=== PATIENT | female | born 1945 | race African-American/Black ===

== ENCOUNTER 2017-08-24 02:32 | Inpatient (IN) | payer BC ==
[2017-08-24] VITALS (38 sets, daily range): BP systolic 56–133; BP diastolic 32–77
[~2017-08-24] VITALS: Ht 172.7 cm; Wt 42.2 kg
--- NOTE | 2017-08-24 02:42 | Emergency Room Report ---
History of Present Illness General Source: Patient, Family Member, Medical Record, EMS Present Illness HPI [id number] BIBEMS for hypoxia "for a couple hours" per EMS and "change in mental status." HPI limited d/t severity of illness, but patient able to endorse "trouble breathing" but deneis chest pain, abd pain, fever/chills, cough POLS sheet is contradictory "DNR" is checked off but its hand-written "intubation OK." However patient, being alert and oriented X3, with me and RN Alethea present, does NOT want to be intubate Allergies: Coded Allergies: No Known Allergies (Unverified , 08/24/17) Patient History Past Medical History: other - COPD, PE, DVT, cancer Past Surgical History: none Pertinent Family History: none Social History: Denies: smoking, alcohol use, drug use Now: No Immunizations: UTD Reviewed Nursing Documentation: PMH: Agreed, PSxH: Agreed Review of Systems All Other Systems: negative except mentioned in HPI Physical Exam Sp02 EP Interpretation: reviewed, abnormal General Appearance: normal inspection, well appearing, no apparent distress, alert, GCS 15, non-toxic, mild distress, cachetic, thin Head: normocephalic, atraumatic Eyes: bilateral eye PERRL, bilateral eye EOMI ENT: normal ENT inspection, hearing grossly normal, normal pharynx, no angioedema, normal voice, TMs + canals normal, uvula midline, moist mucus membranes Neck: normal inspection, full range of motion, supple, thyroid normal, no meningismus, no bony tend Respiratory: normal inspection, lungs clear, normal breath sounds, no rhonchi, no respiratory distress, no retraction, no accessory muscle use, no wheezing, speaking full sentences Cardiovascular #1: regular rate, rhythm, no edema, no JVD, normal capillary refill Gastrointestinal: normal inspection, normal bowel sounds, non tender, soft, no mass, no peritonitis, non-distended, no guarding, no hernia, no pulsatile mass Genitourinary: no CVA tenderness Musculoskeletal: normal inspection, back normal, normal range of motion, no calf tenderness, pelvis stable, Spenser's Sign negative Neurologic: normal inspection, alert, oriented x3, responsive, kennel technician III-XII nml as tested, motor strength/tone normal, cerebellar normal, normal gait, speech normal Psychiatric: normal inspection, judgement/insight normal, mood/affect normal, no suicidal/homicidal ideation, no delusions Skin: normal inspection, normal color, no rash Lymphatic: normal inspection, no adenopathy Procedures Critical Care Time Critical Care Time CC time 40 minutes Critical care time endorsed for this patient for sepsis, PNA Critical care time includes review of laboratory tests, imaging, review of EMR, review of paperwork from SNF (if available), discussion with patient and patient 's daughter, review of code status/POLS (if available). Critical care time also likely includes assessment of fluid status, stabilization of vital signs, selection and dosing of appropriate antibiotics, selection and dosing of Aspirin/Plavix/Heparin/Lovenox, discussion with PMD/ attending hospitalist/family advocate. Critical care time does not include any procedures which are documented elsewhere in this EMR. Medical Decision Making Diagnostic Impression: Primary Impression: Hypoxia Additional Impressions: SOB (shortness of breath) Sepsis Qualified Codes: A41.9 - Sepsis, unspecified organism Elevated troponin Lactic acid acidosis ER Course VS significant for hypoxia, hypotension, tachycardia Sepsis criteria met Patient is alert and oriented - staunchly refused intubation and BIPAP Was given duonebs X2 initially as EMS endorsed history of COPD/asthma but after review of charts, no known history of COPD/Asthma CXR shows bilateral airspace disease, unclear if also underlying PNA Continued empiric Abx - Vanc and Zosyn she was given at [facility] Blood Cx pending Low-rate IVF given for sepsis as lungs CTAB, not on florid pulm edema at this time Labs show Leuks 27K. Per daughter, they were 23K yesterday at [facility] UA also with UTI Lactic acidosis 6.7 Patient with sepsis, PNA +/- UTI Patients daughter, decision-maker, is bedside - states she is scheduled today for every-other week thoracentesis at [facility] for recurrent pleural effusions Additional labs: H&H stable. Mild serumCr elevation, known CKD ECG with ST depressions in inferior and lateral leads with elevated troponin, likely demand ischemia from sepsis Endorsed to Dr Lofton as per Insurance preference at 401am for tele admission as of 425am BP is 89/63, MAP is 69 Patient has PICC line, will use for pressors as needed. EKG Diagnostic Results Rate: tachycardiac Rhythm: NSR ST Segments: no acute changes ASA given to the pt in ED: No Rhythm Strip Diag. Results EP Interpretation: yes Rate: 116 Rhythm: NSR, no PVC's, no ectopy Chest X-Ray Diagnostic Results Chest X-Ray Diagnostic Results : Chest X-Ray Ordered: Yes # of Views/Limited/Complete: 1 View Indication: Shortness of Breath Interpretation: no pneumothorax, other - Bilateral pulm congestion, ? bilateral PNA Electronically Signed by: Dr Dae Gilbert MD Status: improved Disposition: ADMITTED INPATIENT Condition: Critical DAE GILBERT M.D. Aug 24, 2017 02:42
[2017-08-24] MEDS ORDERED: Vancomycin 1 GM in NS 275 ML IV ONE (02:45)
[2017-08-24] MEDS ORDERED: FUROSEMIDE20 M1 ORAL (03:02)
[2017-08-24] MEDS ORDERED: CRESTOR40 MG ORAL (03:02)
[2017-08-24] MEDS ORDERED: LOVENOX10 M4 SUBQ (03:02)
[2017-08-24] MEDS ORDERED: CLOPIDOGREL75 MG ORAL (03:02)
[2017-08-24] MEDS ORDERED: METOPROLOL TART25 MG ORAL (03:02)
[2017-08-24] MEDS ORDERED: AMIODARONE HCL200 MG ORAL (03:02)
[2017-08-24] MEDS ORDERED: CALCIUM 500 +1 EAC3 PO (03:02)
[2017-08-24] MEDS ORDERED: ASPIRIN81 MG ORAL (03:02)
[2017-08-24 03:36] LABS: HEMATOCRIT 33.5 % (37.0-47.0); HEMOGLOBIN 10.2 G/DL (12.0-16.0); MEAN CORPUSCULAR VOLUME 91 FL (80-99); PLATELET COUNT 243 K/UL (150-450); RED BLOOD COUNT 3.68 M/UL (4.20-5.40); RED CELL DISTRIBUTION WIDTH 17.8 % (11.6-14.8)
[2017-08-24 03:40] LABS: WHITE BLOOD COUNT 27.3 K/UL (4.8-10.8)
[2017-08-24 03:42] LABS: ANION GAP 14 mmol/L (5-15); BLOOD UREA NITROGEN 35 mg/dL (7-18); CALCIUM 7.6 MG/DL (8.5-10.1); CARBON DIOXIDE 21 MMOL/L (21-32); CHLORIDE 108 MMOL/L (98-107); CREATININE 1.7 MG/DL (0.55-1.30); POTASSIUM 3.6 MMOL/L (3.5-5.1); SODIUM 143 MMOL/L (136-145)
[2017-08-24] MEDS ORDERED: Vancomycin 1gm inj IVPB ONE (03:49)
[2017-08-24] MEDS ORDERED: Zosyn 4.5gm inj ONE (03:52)
[2017-08-24 03:55] LABS: ALANINE AMINOTRANSFERASE 50 U/L (12-78); ALBUMIN/GLOBULIN RATIO 0.2 (1.0-2.7); ALKALINE PHOSPHATASE 341 U/L (46-116); ASPARTATE AMINO TRANSFERASE 44 U/L (15-37); BILIRUBIN,TOTAL 0.4 MG/DL (0.2-1.0); CKMB 1.4 NG/ML (0.0-3.6); CREATINE KINASE 56 U/L (26-308)
[2017-08-24] MEDS ORDERED: DIPHENOXYLATE-1 EACH PO (04:00)
[2017-08-24] MEDS ORDERED: POTASSIUM CHLO10 ME2 PO (04:00)
[2017-08-24] MEDS ORDERED: PANCREASE1 EA ORAL (04:00)
[2017-08-24] MEDS ORDERED: ZANTAC150 MG ORAL (04:00)
[2017-08-24] MEDS ORDERED: TYLENOL EXTRA500 MG ORAL (04:00)
[2017-08-24 04:06] LABS: APPEARANCE,URINE CLOUDY; BILIRUBIN, URINE NEGATIVE (NEGATIVE); GLUCOSE, URINE (UA) NEGATIVE (NEGATIVE); KETONES,URINE NEGATIVE (NEGATIVE); LEUKOCYTE ESTERASE ,URINE 1+ (NEGATIVE); NITRITE,URINE NEGATIVE (NEGATIVE); PH,URINE 5 (4.5-8.0); PROTEIN,URINE 3+ (NEGATIVE); UROBILINOGEN,URINE NORMAL MG/DL (0.0-1.0)
[2017-08-24 04:18] LABS: COLOR,URINE YELLOW
[2017-08-24] MEDS ORDERED: Piperacillin/Tazobactam 4.5 GM in NS 110 ML IV SCH ×4 (06:00)
[2017-08-24] MEDS ORDERED: Sodium Chloride 500ML 500 ML IV ONE (09:00)
[2017-08-24] MEDS ORDERED: LORazepam Inj 2mg/ml 1ml IV PRN (11:00)
[2017-08-24 11:08] LABS: INR 1.4 (0.9-1.1)
[2017-08-24] MEDS ORDERED: Albuterol/Ipratropium 3ml neb HHN PRN ×2 (11:15→14:00)
--- NOTE | 2017-08-24 11:18 | Emergency Room Report ---
History of Present Illness General Chief Complaint: Dyspnea/Respdistress Source: Patient, Family Member, Medical Record, EMS Present Illness Allergies: Coded Allergies: No Known Allergies (Unverified , 08/24/17) Patient History Now: No Nursing Documentation-PMH Hx Cardiac Problems: Yes - CHF,CAD,PE Hx Hypertension: Yes Hx Cancer: Yes - MALIGNANT NEOPLASM OF PANCREAS Physical Exam Vital Signs Date Time Temp Pulse Resp B/P (MAP) Pulse Ox O2 Delivery O2 Flow Rate FiO2 08/24/17 02:43 98.4 112 29 84/66 95 Non-Rebreather 15.0 Procedures Intubation Intubation : Consent: Emergent Intubation Method: orotracheal Tube Size (cm): 7.0 Breath Sounds after Intubation: equal Intubation Complications: no complications Post Intubation Xray: Yes Attempts: One Patient Tolerated: Well Complications: None Medical Decision Making Diagnostic Impression: Primary Impression: Hypoxia Additional Impressions: Lactic acid acidosis SOB (shortness of breath) Elevated troponin Sepsis Qualified Codes: A41.9 - Sepsis, unspecified organism ER Course I was called up to medical floor as patient stopped breathing Pulses intact Patient is DO NOT RESUSCITATE however not DO NOT INTUBATE Patient's daughter was in the room, is the power of solid tire finisher, states that patient would want intubation Patient intubated without complication Patient to be transferred to ICU Nursing staff notified Dr Lofton Last Vital Signs Date Time Temp Pulse Resp B/P (MAP) Pulse Ox O2 Delivery O2 Flow Rate FiO2 08/24/17 08:35 71/49 08/24/17 07:25 98.9 92 32 95 Non-Rebreather 15.0 Disposition: ADMITTED INPATIENT Condition: Critical Referrals: MARGIEREFERRING (PCP) Snow Posey M.D. Aug 24, 2017 11:18
--- NOTE | 2017-08-24 12:29 | Diagnostic Imaging Report ---
Indication: Shortness of breath Technique: One view of the chest Comparison: none Findings: There is left arm port catheter. Extensive bilateral diffuse interstitial and airspace disease is demonstrated bilaterally. Honeycomb appearance of much of the interstitial disease suggests significant chronic component there are bilateral pleural effusions as well. The heart size is normal. Impression: Bilateral diffuse interstitial and airspace disease, suspect combination of acute infiltrates versus edema and chronic interstitial fibrotic changes. Correlate with clinical history Bilateral pleural effusions Left arm port catheter
--- NOTE | 2017-08-24 12:54 | History & Physical ---
History and Physical History & Physicial dict DANNIDAE EL Aug 24, 2017 12:54
[2017-08-24] MEDS ORDERED: Enoxaparin 40mg Inj SUBQ SCH (13:00)
[2017-08-24] MEDS: Enoxaparin 40mg Inj SUBQ SCH (14:00)
--- NOTE | 2017-08-24 14:31 | Brief Operative Note ---
Immediate Post Operative Note Operative Note Pre-op Diagnosis: pleural effusion Procedure: thoracentesis Post-op Diagnosis: same Surgeon: Sumi Sosa Specimen: yes - fluid sent to lab Complications: none Fluids: none Implant(s) used?: No DALTON SOSA M.D. Aug 24, 2017 14:31
--- NOTE | 2017-08-24 14:31 | Pre-Procedure Note/Attestation ---
Pre-Procedure Note/Attestation Complete Prior to Procedure Planned Procedure: right Procedure Narrative: US guided thoracentesis Indications for Procedure Pre-Operative Diagnosis: pleural effusion Attestation I attest that I discussed the nature of the procedure; its benefits; risks and complications; and alternatives (and the risks and benefits of such alternatives ), prior to the procedure, with the patient (or the patient's legal customer care representative). I attest that, if there was a reasonable possibility of needing a blood transfusion, the patient (or the patient's legal customer care representative) was given the [facility] standardized written summary, pursuant to the Jl Kurt Blood Safety Act ([place] Health and Safety Code # 1645, as amended). I attest that I re-evaluated the patient just prior to the surgery and that there has been no change in the patient's H&P, except as documented below: Discussed with daughter at bedside immediately prior to the procedure DALTON SOSA M.D. Aug 24, 2017 14:31
--- NOTE | 2017-08-24 15:52 | Pre-Procedure Note/Attestation ---
Pre-Procedure Note/Attestation Complete Prior to Procedure Planned Procedure: right Procedure Narrative: Chest vent placement Indications for Procedure Pre-Operative Diagnosis: pneumothorax Attestation I attest that I discussed the nature of the procedure; its benefits; risks and complications; and alternatives (and the risks and benefits of such alternatives ), prior to the procedure, with the patient (or the patient's legal pharmaceutical representative). I attest that, if there was a reasonable possibility of needing a blood transfusion, the patient (or the patient's legal pharmaceutical representative) was given the [facility] standardized written summary, pursuant to the Jl Kurt Blood Safety Act ([place] Health and Safety Code # 1645, as amended). I attest that I re-evaluated the patient just prior to the surgery and that there has been no change in the patient's H&P, except as documented below: Discussed with pt's daughter at bedside immediately before the procedure DALTON SOSA M.D. Aug 24, 2017 15:52
--- NOTE | 2017-08-24 15:54 | Brief Operative Note ---
Immediate Post Operative Note Operative Note Pre-op Diagnosis: pneumothorax Procedure: chest vent placement at bedside Post-op Diagnosis: same Post-op Diagnosis: same as pre-op Surgeon: Sumi SOSA Anesthesia: local Specimen: none Complications: none Fluids: none Drains: other - chest vent Implant(s) used?: No DALTON SOSA M.D. Aug 24, 2017 15:54
[2017-08-24] MEDS ORDERED: Piperacillin/Tazobactam 3.375 GM in NS 110 ML IVPB SCH (16:00)
--- NOTE | 2017-08-24 16:03 | Diagnostic Imaging Report ---
Indication: Status post thoracentesis Technique: One view of the chest Comparison: 11 hours earlier Findings: Interim development of a large 70+ percent right pneumothorax. No definite mediastinal shift. Interim endotracheal intubation, endotracheal tube tip approximately 5 cm above the nisha. Left pleural effusion and left lung interstitial and airspace disease is unchanged. Left arm port catheter is again demonstrated Impression: 70+ percent right pneumothorax. This critical value findings phoned to Dr. Lofton at 1445 on 08/24/2017 Satisfactory endotracheal intubation Unchanged left pleural effusion and parenchymal disease
--- NOTE | 2017-08-24 16:36 | Diagnostic Imaging Report ---
Indications: Pleural effusion Technique: Procedure performed at bedside. Informed consent obtained prior to commencement of the procedure from the patient's daughter. Procedure timeout performed. Ultrasound used to localize optimal puncture site. Sterile prepping and draping right chest chest. Local anesthesia with 1% lidocaine. Under real-time ultrasound guidance, puncture pleural space using thoracentesis needle. Stylet removed. Catheter placed to vacuum bottle suction. Total 1200 milliliters of fluid aspirated. Follow-up chest radiograph demonstrates large pneumothorax. Findings: Followup sonography demonstrates near complete resolution of pleural fluid. Impression: Successful ultrasound-guided thoracentesis, yielding 1200 milliliters of fluid. Note the procedure complicated by post procedure pneumothorax, requiring chest vent placement
--- NOTE | 2017-08-24 17:27 | Diagnostic Imaging Report ---
Indication: Pneumothorax, follow-up after thoracic vent placement Technique: One view of the chest Comparison: Radiograph taken immediately after thoracic vent placement 90 minutes earlier Findings: Stable satisfactory position of thoracic vent catheter.. However, despite this, there is interim increase in right pneumothorax, probably over 50%. No mediastinal shift demonstrated. Diffuse bilateral interstitial and airspace disease, left-sided pleural effusion persists. Endotracheal tube, left arm port catheter again demonstrated. Surgical clips are seen in the upper abdomen Impression: Worsening right pneumothorax, now probably over 50%, despite apparent adequate position of chest vent catheter and placement to continuous suction. This indicates likely air leak; tube thoracostomy should be considered. Critical value findings phoned to Dr. Lofton at the time of interpretation
--- NOTE | 2017-08-24 17:36 | Diagnostic Imaging Report ---
Indication: Large pneumothorax after thoracentesis Technique: Informed consent obtained prior to commencement of the procedure from the patient's daughter. Procedure performed at bedside. Prior imaging studies reviewed. Procedure timeout performed. Sterile prepping and draping. Using manual landmarks, selected puncture site was the fourth intercostal space lateral to the mid axillary line. Local anesthesia with 1% lidocaine. Using trocar technique a chest vent catheter was introduced into the pleural space. Movement of the diaphragm indicated position within the pleural space. The pneumothorax was then forcibly evacuated with a 60 mL syringe. Follow-up chest radiograph obtained, demonstrating marked decrease in extent of pneumothorax, probably at 20%, as well as increased lateral chest wall and supraclavicular subcutaneous emphysema. After manual evacuation, the tube was placed to continuous Pleur-evac suction. Patient's hemodynamics improved after tube placement Comparison: Apparently successful placement of right chest vent catheter for evacuation of large post thoracentesis pneumothorax, as described Findings: Impression:
--- NOTE | 2017-08-24 18:39 | Consultation ---
History of Present Illness General Date patient seen: Aug 24, 2017 Chief Complaint: Dyspnea/Respdistress Reason for Consultation: Right pneumothorax (PTX) Present Illness HPI 72 year old female with multiple medical comorbidities including metastatic pancreatic cancer who recently was transferred after developing respiratory distress and altered mental status. During admission went into respiratory distress and required intubation. Known history of effusions and planned thoracentesis soon. CXR with effusions. Had right thoracentesis today. Post procedure PTX noted and vent placed. unfortunately persistent ptx. surgery called to evaluate for chest tube placement. patient seen, chart reviewed, care discussed with family. Allergies: Coded Allergies: No Known Allergies (Unverified , 08/24/17) Medication History Scheduled Amiodarone Hcl* (Cordarone*), 200 MG ORAL DAILY, (Reported) Aspirin* (Aspirin*), 81 MG ORAL DAILY, (Reported) Clopidogrel* (Clopidogrel*), 75 MG ORAL DAILY, (Reported) Enoxaparin* (Lovenox*), 40 MG SUBQ EVERY 12 HOURS, (Reported) Furosemide* (Lasix*), 20 MG ORAL DAILY, (Reported) Lipase/Amylase/Protease* (Pancrease*), 2 CAP ORAL THREE TIMES A DAY, (Reported) Metoprolol Tartrate* (Metoprolol Tartrate*), 25 MG ORAL DAILY, (Reported) Potassium Chloride (Potassium Chloride), 10 MEQ PO DAILY, (Reported) Ranitidine Hcl* (Zantac*), 150 MG ORAL DAILY, (Reported) Rosuvastatin Calcium* (Crestor*), 40 MG ORAL DAILY, (Reported) Scheduled PRN Acetaminophen* (Tylenol Extra Strength*), 500 MG ORAL Q6H PRN for Mild Pain/ Temp > 100.5, (Reported) Diphenoxylate Hcl/Atropine (Diphenoxylate-Atropine Tablet), 1 EACH PO QID PRN for Diarrhea, (Reported) Miscellaneous Medications Calcium Carbonate/Vitamin D3 (Calcium 500 + D Tablet), 1 EACH PO, (Reported) Patient History Limited by: medical condition History Provided By: Family Member, Medical Record Healthcare decision maker Resuscitation status Do Not Resuscitate Advanced Directive on File No Past Medical/Surgical History Past Medical/Surgical History: (1) Pancreatic cancer metastasized to lung (2) Pneumothorax on right (3) SOB (shortness of breath) (4) Hypoxia (5) Sepsis (6) Lactic acid acidosis (7) Elevated troponin Review of Systems ROS Narrative cannot obtain given patients current medical condition Physical Exam General Appearance: cachetic, thin, other - comfortable on vent HEENT: mucous membranes moist Neck: normal inspection Respiratory/Chest: chest tube, on vent Cardiovascular/Chest: tachycardia Abdomen: soft, no organomegaly Extremities: no cyanosis Skin Exam: normal pigmentation Neurologic: unresponsiveness Last 24 Hour Vital Signs Date Time Temp Pulse Resp B/P (MAP) Pulse Ox O2 Delivery O2 Flow Rate FiO2 08/24/17 17:05 55/35 08/24/17 16:45 90 26 100 08/24/17 16:30 97 24 78/51 Mechanical Ventilator 100 97 08/24/17 16:00 100 08/24/17 16:00 97.1 97 31 105/67 Mechanical Ventilator 100 97 08/24/17 15:30 97 31 129/71 Mechanical Ventilator 100 97 08/24/17 15:00 97 29 92/43 Mechanical Ventilator 100 97 08/24/17 14:56 97 31 100 08/24/17 14:30 85 29 58/35 Mechanical Ventilator 100 08/24/17 14:00 88 29 101/73 Mechanical Ventilator 100 08/24/17 13:30 86 28 103/65 Mechanical Ventilator 100 08/24/17 13:00 83 28 115/69 Mechanical Ventilator 100 08/24/17 12:30 80 27 110/65 Mechanical Ventilator 100 08/24/17 12:00 70/47 08/24/17 12:00 100 08/24/17 12:00 97.3 81 28 73/50 Mechanical Ventilator 100 08/24/17 08:35 71/49 08/24/17 07:40 97.2 85 24 83/48 94 Non-Rebreather 15.0 08/24/17 07:25 98.9 92 32 123/64 95 Non-Rebreather 15.0 08/24/17 07:00 98.9 92 32 123/64 95 Non-Rebreather 15.0 08/24/17 06:00 98.9 91 26 107/66 98 Non-Rebreather 15.0 08/24/17 05:00 98.9 98 23 100/61 95 Non-Rebreather 15.0 08/24/17 04:00 98.9 102 23 99/58 97 Non-Rebreather 15.0 08/24/17 03:00 99.8 108 26 / 95 Non-Rebreather 15.0 08/24/17 03:00 108 26 Non-Rebreather 15.0 08/24/17 02:43 98.4 112 29 95 Non-Rebreather 15.0 Intake and Output 08/23/17 08/24/17 19:00 07:00 Intake Total 1385 ml Output Total 150 ml Balance 1235 ml Intake IV Total 1385 ml Output Urine Total 150 ml Laboratory Tests Test 08/24/17 03:00 08/24/17 03:55 08/24/17 06:20 08/24/17 10:00 White Blood Count 27.3 K/UL (4.8-10.8) *H Red Blood Count 3.68 M/UL (4.20-5.40) L Hemoglobin 10.2 G/DL (12.0-16.0) L Hematocrit 33.5 % (37.0-47.0) L Mean Corpuscular Volume 91 FL (80-99) Mean Corpuscular Hemoglobin 27.6 PG (27.0-31.0) Mean Corpuscular Hemoglobin Concent 30.3 G/DL (32.0-36.0) L Red Cell Distribution Width 17.8 % (11.6-14.8) H Platelet Count 243 K/UL (150-450) Mean Platelet Volume 8.5 FL (6.5-10.1) Neutrophils (%) (Auto) % (45.0-75.0) Lymphocytes (%) (Auto) % (20.0-45.0) Monocytes (%) (Auto) % (1.0-10.0) Eosinophils (%) (Auto) % (0.0-3.0) Basophils (%) (Auto) % (0.0-2.0) Differential Total Cells Counted 100 Neutrophils % (Manual) 93 % (45-75) H Lymphocytes % (Manual) 1 % (20-45) L Monocytes % (Manual) 2 % (1-10) Eosinophils % (Manual) 0 % (0-3) Basophils % (Manual) 0 % (0-2) Band Neutrophils 4 % (0-8) Platelet Estimate Adequate Platelet Morphology Normal Sodium Level 143 MMOL/L (136-145) Potassium Level 3.6 MMOL/L (3.5-5.1) Chloride Level 108 MMOL/L (98-107) H Carbon Dioxide Level 21 MMOL/L (21-32) Anion Gap 14 mmol/L (5-15) Blood Urea Nitrogen 35 mg/dL (7-18) H Creatinine 1.7 MG/DL (0.55-1.30) H Estimat Glomerular Filtration Rate mL/min (>60) Glucose Level 135 MG/DL (74-106) H Lactic Acid Level 6.70 mmol/L (0.66-2.22) H 2.90 mmol/L (0.66-2.22) H Calcium Level 7.6 MG/DL (8.5-10.1) L Total Bilirubin 0.4 MG/DL (0.2-1.0) Aspartate Amino Transf (AST/SGOT) 44 U/L (15-37) H Alanine Aminotransferase (ALT/SGPT) 50 U/L (12-78) Alkaline Phosphatase 341 U/L (46-116) H Total Creatine Kinase 56 U/L (26-308) Creatine Kinase MB 1.4 NG/ML (0.0-3.6) Creatine Kinase MB Relative Index 2.5 Troponin I 0.189 ng/mL (0.000-0.056) 0.460 ng/mL (0.000-0.056) Pro-B-Type Natriuretic Peptide 6991 pg/mL (0-125) H Total Protein 5.1 G/DL (6.4-8.2) L Albumin 1.0 G/DL (3.4-5.0) L Globulin 4.1 g/dL Albumin/Globulin Ratio 0.2 (1.0-2.7) L Urine Color Yellow Urine Appearance Cloudy Urine pH 5 (4.5-8.0) Urine Specific [place] 1.015 (1.005-1.035) Urine Protein 3+ (NEGATIVE) H Urine Glucose (UA) Negative (NEGATIVE) Urine Ketones Negative (NEGATIVE) Urine Occult Blood 2+ (NEGATIVE) H Urine Nitrite Negative (NEGATIVE) Urine Bilirubin Negative (NEGATIVE) Urine Urobilinogen Normal MG/DL (0.0-1.0) Urine Leukocyte Esterase 1+ (NEGATIVE) H Urine RBC 5-10 /HPF (0 - 2) H Urine WBC 2-4 /HPF (0 - 2) Urine Squamous Epithelial Cells Few /LPF (NONE/OCC) Urine Amorphous Sediment Many /LPF (NONE) H Urine Bacteria Many /HPF (NONE) H Urine Coarse Granular Casts 5-10 /LPF (NONE) H Urine Mucus Few /LPF (NONE/OCC) H Prothrombin Time 14.8 SEC (9.30-11.50) H Prothromb Time International Ratio 1.4 (0.9-1.1) H Activated Partial Thromboplast Time 49 SEC (23-33) H Test 08/24/17 12:48 Arterial Blood pH 7.310 (7.350-7.450) Arterial Blood Partial Pressure CO2 38.9 mmHg (35.0-45.0) Arterial Blood Partial Pressure O2 104.6 mmHg (75.0-100.0) H Arterial Blood HCO3 19.5 mmol/L (22.0-26.0) L Arterial Blood Oxygen Saturation 95.3 % (92.0-98.0) Arterial Blood Base Excess -6.1 Aram Test Positive Microbiology Date/Time Source Procedure Growth Status 08/24/17 03:30 Nasal Nares Influenza Types A,B Antigen (JUSTINE) - Final Complete Height (Feet): 5 Height (Inches): 8.00 Weight (Pounds): 93 Medications Current Medications Medications (Trade) Dose Ordered Sig/Mati Route PRN Reason Start Time Stop Time Status Last Admin Dose Admin Albuterol/ Ipratropium (Albuterol/ Ipratropium) 3 ml Q4H PRN HHN Shortness of Breath 08/24/17 14:00 08/29/17 13:59 Amiodarone HCl (Cordarone) 200 mg DAILY ORAL 08/25/17 09:00 09/24/17 08:59 Aspirin (ASA) 81 mg DAILY ORAL 08/25/17 09:00 09/24/17 08:59 Atorvastatin Calcium (Lipitor) 80 mg QHS ORAL 08/24/17 21:00 09/23/17 20:59 Clopidogrel Bisulfate (Plavix) 75 mg DAILY ORAL 08/25/17 09:00 09/24/17 08:59 Dextrose (Dextrose 50%) STAT PRN IV Hypoglycemia 08/24/17 14:00 09/23/17 13:59 Dextrose/ Electrolytes 1,000 ml @ 100 mls/hr Q10H IV 08/24/17 14:00 09/23/17 13:59 08/24/17 15:30 Enoxaparin Sodium (Lovenox) 40 mg DAILY SUBQ 08/24/17 14:00 09/23/17 13:59 Lorazepam (Ativan 2mg/ml 1ml) 0.5 mg Q2H PRN IV For Anxiety 08/24/17 14:00 08/31/17 13:59 Metoprolol Succinate (Toprol XL) 25 mg DAILY ORAL 08/25/17 09:00 09/24/17 08:59 Norepinephrine Bitartrate 4 mg/ Dextrose 250 ml @ 0 mls/hr Q24H IV 08/24/17 13:45 09/23/17 13:44 08/24/17 17:05 Piperacillin Sod/ Tazobactam Sod 3.375 gm/Sodium Chloride 110 ml @ 27.5 mls/hr Q12HR@0400,1600 IVPB 08/24/17 16:00 08/31/17 15:59 Vancomycin HCl (Vanco rx to dose) 1 ea DAILY PRN MISC Per rx protocol 08/25/17 09:00 09/23/17 09:14 Vancomycin HCl 500 mg/Sodium Chloride 110 ml @ 110 mls/hr Q48H IVPB 08/26/17 02:00 08/31/17 01:59 Assessment/Plan Problem List: (1) Pneumothorax on right Assessment & Plan: Right ptx after thoracentesis not improved with vent. CXR reviewed. recommend right chest tube. likely has air leak leading to enlarging ptx. will need moderate sized tube. discussed care with family and decision maker. extensive history with poor prognosis. likely malignant effusion. chest tube will help with ptx but condition may continue to deteriorate. unsure if tube will be able to be removed if persistent effusion. risks, benefits, and alternatives discussed in detail. consent obtained. will proceed at bedside. ICD Codes: J93.9 - Pneumothorax, unspecified SNOMED: [id number] Status: not improved Brad Berkowitz Aug 24, 2017 18:39
[2017-08-24] MEDS: LORazepam Inj 2mg/ml 1ml IV PRN (19:00)
[2017-08-24] MEDS ORDERED: Morphine Sulfate 2mg/ml Inj IVP ONE (19:15)
[2017-08-24] MEDS: Piperacillin/Tazobactam 3.375 GM in NS 110 ML IVPB SCH (19:30)
--- NOTE | 2017-08-24 19:31 | Operative Note - PDOC ---
Operative Note Operative Note Date of Operation/Procedure: Aug 24, 2017 Pre-op Diagnosis: right pneumothorax Procedure: right tube thoracostomy Post-op Diagnosis: same as pre-op Surgeon: safia Anesthesia: local, moderate sedation Specimen: none Complications: none Condition: unstable - same as prior with improved oxygenation Fluids: none Estimated Blood Loss: minimal - 28f right chest tube Drains: other - chest vent Implant(s) used?: No Indications for Procedure 72F with multiple medical comorbidities in ICU intubated after respiratory compromise. Right thoracentesis performed today with post procedure ptx which did not resolve with vent. Chest tube indicated and recommended. risks, benefits, and alternatives discussed with patient's family at bedside. consent obtained. Description of Procedure A time out was performed and after the chest x-ray was reviewed, the appropriate side, RIGHT, was confirmed and marked. My hands were washed immediately prior to the procedure. I wore a surgical cap, mask with protective eyewear, sterile gown and sterile gloves throughout the procedure. The patient was prepped and draped in a sterile manner using chlorhexidine scrub after the patient was positioned in the usual fashion. Patient was already intubated and sedated. Meds given to keep patient comfortable. A 2 cm incision was then made parallel to the rib in the midaxillary line at the level of the nipple. The subcutaneous tissue superficial and superior to the rib was dissected bluntly to the level of the pleura. The pleura was then entered bluntly. A gush of air was noted from the pleural space. The disruption in the parietal pleura was expanded bluntly and a finger was inserted and swept carefully in all directions. A 28 [place] chest tube was then inserted using my finger as a guide. The chest tube was directed cephalad and inserted easily. The chest tube was sutured to the skin at the insertion site, and connected securely with tape to a pleurovac. A sterile occlusive dressing was placed over the insertion site. No immediate complications were noted. A post-procedure chest x-ray is pending at the time of this note. Brad Berkowitz Aug 24, 2017 19:31
--- NOTE | 2017-08-24 20:30 | History and Physical Report ---
DATE OF ADMISSION: 08/24/2017 CHIEF COMPLAINT: Shortness of breath. HISTORY OF PRESENT ILLNESS: The patient was transferred from a nearby snf because of shortness of breath. She is known to have cancer of the pancreas and has had chemotherapy. She was evaluated and noted to be hypoxic. Sepsis was considered likely due to pneumonia in view of the x-ray findings and symptoms. The patient was admitted to the medical floor. I came to see the patient this morning and two daughters were at the bedside. The patient appeared weak and frail with significant muscle wasting. PAST MEDICAL HISTORY: Includes chronic obstructive pulmonary disease, pulmonary embolism, deep vein thrombosis, and pancreatic cancer. There is a history of myocardial infarction and arrhythmia and she is on amiodarone and aspirin as well as Plavix. She is on Lovenox. There is hyperlipidemia, treated with statin. REVIEW OF SYSTEMS: Cannot be obtained. She is bedridden and very weak, but apparently recently has been able to get up in the therapy gym on a bicycle. As mentioned, she lost a great deal of weight. PHYSICAL EXAMINATION: VITAL SIGNS: Showed blood pressure was low, was as low as 70/47, temperature 99.8, respirations 24 to 32, and saturation 94% to 95% on a non-rebreather mask. SKIN: Warm and dry. HEENT: The head is normocephalic. There is muscle wasting noted. CHEST: Has rales on the right. CARDIAC: Rhythm is regular. ABDOMEN: Soft and nontender. EXTREMITIES: Cool with poor perfusion. LABORATORY AND DIAGNOSTIC DATA: Laboratory studies showed a white count of 27,300; hemoglobin 10, and platelets 243,000. Electrolytes are normal. BUN and creatinine elevated at 35 and 1.7. Lactic acid elevated. Troponin mildly elevated. Alkaline phosphatase and AST elevated. Natriuretic peptide 7000. Albumin is 1.0. INR 1.4. Urinalysis, 2 to 4 white cells and a few red cells. Chest x-ray shows bilateral diffuse airspace disease suggesting edema or interstitial fibrosis and bilateral pleural effusions. There is a Port-A-Cath in the left arm. IMPRESSION: 1. Sepsis with shock. 2. Respiratory failure, hypoxic type. 3. Pneumonia and pleural effusions. 4. Metastatic pancreatic cancer. 5. Severe protein-calorie malnutrition. PLAN: The patient's poor condition was discussed in detail with both daughters at the bedside. They agreed to DNR for cardiac arrest, but do want the patient intubated if her breathing fails. Subsequent to my examination before I dictated the patient did have respiratory failure and a Code Blue was called, no CPR was administered, but she was intubated and transferred to intensive care where she was placed on vasopressors. The prognosis is very poor for recovery, given multiorgan failure and daughters were advised of this. Stephen Lofton M.D. DR: LEANDRO JOB#: [id number] CC: Stephen Lofton M.D.; Fax#: [phone]
[2017-08-24] MEDS ORDERED: Atorvastatin 80mg tab ORAL SCH ×2 (21:00)
[2017-08-24 21:01] LABS: HEMOGLOBIN 9.1 G/DL (12.0-16.0); MEAN CORPUSCULAR VOLUME 92 FL (80-99); PLATELET COUNT 218 K/UL (150-450); RED BLOOD COUNT 3.27 M/UL (4.20-5.40); RED CELL DISTRIBUTION WIDTH 17.8 % (11.6-14.8)
[2017-08-24 21:15] LABS: ALANINE AMINOTRANSFERASE 180 U/L (12-78); ALBUMIN 0.8 G/DL (3.4-5.0); ALBUMIN/GLOBULIN RATIO 0.2 (1.0-2.7); ALKALINE PHOSPHATASE 302 U/L (46-116); ANION GAP 13 mmol/L (5-15); ASPARTATE AMINO TRANSFERASE 322 U/L (15-37); BILIRUBIN,TOTAL 0.3 MG/DL (0.2-1.0); BLOOD UREA NITROGEN 36 mg/dL (7-18); CALCIUM 6.5 MG/DL (8.5-10.1); CARBON DIOXIDE 22 MMOL/L (21-32); CHLORIDE 111 MMOL/L (98-107); CREATININE 1.7 MG/DL (0.55-1.30); POTASSIUM 3.4 MMOL/L (3.5-5.1); SODIUM 146 MMOL/L (136-145)
[2017-08-25] VITALS (32 sets, daily range): BP systolic 70–129; BP diastolic 40–92
[2017-08-25] MEDS: Piperacillin/Tazobactam 3.375 GM in NS 110 ML IVPB SCH (03:28)
[2017-08-25] MEDS: LORazepam Inj 2mg/ml 1ml IV PRN (03:29)
[2017-08-25 04:44] LABS: HEMATOCRIT 30.7 % (37.0-47.0); HEMOGLOBIN 9.4 G/DL (12.0-16.0); MEAN CORPUSCULAR VOLUME 92 FL (80-99); PLATELET COUNT 204 K/UL (150-450); RED BLOOD COUNT 3.35 M/UL (4.20-5.40); RED CELL DISTRIBUTION WIDTH 17.7 % (11.6-14.8); WHITE BLOOD COUNT 21.5 K/UL (4.8-10.8)
[2017-08-25 05:36] LABS: ALANINE AMINOTRANSFERASE 202 U/L (12-78); ALBUMIN 0.8 G/DL (3.4-5.0); ALBUMIN/GLOBULIN RATIO 0.2 (1.0-2.7); ALKALINE PHOSPHATASE 304 U/L (46-116); ANION GAP 13 mmol/L (5-15); ASPARTATE AMINO TRANSFERASE 281 U/L (15-37); BILIRUBIN,TOTAL 0.3 MG/DL (0.2-1.0); BLOOD UREA NITROGEN 37 mg/dL (7-18); CALCIUM 6.4 MG/DL (8.5-10.1); CARBON DIOXIDE 19 MMOL/L (21-32); CHLORIDE 111 MMOL/L (98-107); CREATININE 1.8 MG/DL (0.55-1.30); SODIUM 143 MMOL/L (136-145)
--- NOTE | 2017-08-25 08:48 | Pulmonology Progress Note ---
Assessment/Plan Assessment/Plan 1. Sepsis with shock. 2. Respiratory failure, hypoxic type, intubated 08/24/17 3. Pneumonia and pleural effusions, tapped 08/24 4. Metastatic pancreatic cancer. 5. Severe protein-calorie malnutrition. 6. R pneumothorax pressors vent, sedation prn renal consult re anuric state [facility] cardiac consult CXR echo prognosis grave disc w her PMD, Dr Travis Subjective ROS Limited/Unobtainable: Yes Allergies: Coded Allergies: No Known Allergies (Unverified , 08/24/17) Objective Last 24 Hour Vital Signs Date Time Temp Pulse Resp B/P (MAP) Pulse Ox O2 Delivery O2 Flow Rate FiO2 08/25/17 08:00 97.6 108 30 97/49 Mechanical Ventilator 100 94 08/25/17 08:00 97/49 08/25/17 08:00 100 08/25/17 07:45 111 31 108/57 Mechanical Ventilator 100 94 08/25/17 07:30 108/57 08/25/17 07:30 110 29 111/87 Mechanical Ventilator 100 94 08/25/17 07:00 111/69 08/25/17 07:00 112 32 111/69 Mechanical Ventilator 100 94 08/25/17 06:59 111 31 100 08/25/17 05:45 111 24 94/72 Mechanical Ventilator 100 94 08/25/17 05:30 110 24 115/85 Mechanical Ventilator 100 94 08/25/17 05:18 110 27 100 08/25/17 05:15 110 24 102/68 Mechanical Ventilator 100 94 08/25/17 05:00 110 24 113/70 Mechanical Ventilator 100 94 08/25/17 04:15 106 24 110/61 Mechanical Ventilator 100 94 08/25/17 04:00 100 08/25/17 04:00 103 24 92/63 Mechanical Ventilator 100 94 08/25/17 04:00 106 08/25/17 03:30 113 24 91/59 Mechanical Ventilator 100 94 08/25/17 03:29 95 27 100 08/25/17 03:15 113 24 84/66 Mechanical Ventilator 100 94 08/25/17 03:00 109 24 120/74 Mechanical Ventilator 100 94 08/25/17 02:45 107 24 129/92 Mechanical Ventilator 100 94 08/25/17 02:30 105 24 117/79 Mechanical Ventilator 100 94 08/25/17 02:15 103 24 103/77 Mechanical Ventilator 100 94 08/25/17 02:00 102 24 118/72 Mechanical Ventilator 100 94 08/25/17 01:24 97 26 100 08/25/17 01:00 107/40 08/25/17 01:00 100 24 107/40 Mechanical Ventilator 100 94 08/25/17 00:45 101 24 111/84 Mechanical Ventilator 100 94 08/25/17 00:15 101 24 107/70 Mechanical Ventilator 100 94 08/25/17 00:00 101 24 114/57 Mechanical Ventilator 100 94 08/24/17 23:45 100 24 110/69 Mechanical Ventilator 100 94 08/24/17 23:30 100 24 111/77 Mechanical Ventilator 100 94 08/24/17 23:29 99 27 100 08/24/17 23:15 100 24 132/45 Mechanical Ventilator 100 94 08/24/17 23:00 98 24 103/66 Mechanical Ventilator 100 94 08/24/17 22:45 98 24 112/69 Mechanical Ventilator 100 94 08/24/17 22:15 98 24 106/48 Mechanical Ventilator 100 94 08/24/17 22:00 97 24 103/62 Mechanical Ventilator 100 94 08/24/17 21:29 95 25 100 08/24/17 21:00 96 24 97/66 Mechanical Ventilator 100 94 08/24/17 20:45 94 25 98/52 Mechanical Ventilator 100 94 08/24/17 20:30 94 24 98/59 Mechanical Ventilator 100 94 08/24/17 20:15 96 24 92/64 Mechanical Ventilator 100 94 08/24/17 20:00 93 08/24/17 20:00 96 24 89/62 Mechanical Ventilator 100 94 08/24/17 20:00 100 08/24/17 19:11 93 26 100 08/24/17 19:00 94 29 97/65 Mechanical Ventilator 100 94 08/24/17 18:30 89 23 105/65 Mechanical Ventilator 100 100 08/24/17 18:15 89 23 133/76 Mechanical Ventilator 100 100 08/24/17 18:00 89 23 99/59 Mechanical Ventilator 100 100 08/24/17 17:45 90 23 93/61 Mechanical Ventilator 100 100 08/24/17 17:30 91 23 95/60 Mechanical Ventilator 100 99 08/24/17 17:15 92 23 98/61 Mechanical Ventilator 100 99 08/24/17 17:05 55/35 08/24/17 17:00 93 25 91/62 Mechanical Ventilator 100 98 08/24/17 16:45 95 25 56/32 Mechanical Ventilator 100 98 08/24/17 16:45 90 26 100 08/24/17 16:30 97 24 78/51 Mechanical Ventilator 100 97 08/24/17 16:00 100 08/24/17 16:00 97.1 97 31 105/67 Mechanical Ventilator 100 97 08/24/17 16:00 98 08/24/17 15:30 97 31 129/71 Mechanical Ventilator 100 97 08/24/17 15:00 97 29 92/43 Mechanical Ventilator 100 97 08/24/17 14:56 97 31 100 08/24/17 14:30 85 29 58/35 Mechanical Ventilator 100 08/24/17 14:00 88 29 101/73 Mechanical Ventilator 100 08/24/17 13:30 86 28 103/65 Mechanical Ventilator 100 08/24/17 13:00 83 28 115/69 Mechanical Ventilator 100 08/24/17 12:30 80 27 110/65 Mechanical Ventilator 100 08/24/17 12:00 86 08/24/17 12:00 70/47 08/24/17 12:00 100 08/24/17 12:00 97.3 81 28 73/50 Mechanical Ventilator 100 Intake and Output 08/24/17 08/25/17 19:00 07:00 Intake Total 350 ml 952.5 ml Output Total 0 ml 620 ml Balance 350 ml 332.5 ml Intake IV Total 350 ml 952.5 ml Output Urine Total 0 ml 0 ml Chest Tube Drainage Total 620 ml Objective R anterior chest tube to suction General Appearance: no acute distress, cachetic HEENT: atraumatic, anicteric Respiratory/Chest: crackles/rales Cardiovascular: regular rhythm, tachycardia, other - distant heart tones Abdomen: soft, non tender, no mass Extremities: no cyanosis, no clubbing, no edema, other - cold Microbiology Date/Time Source Procedure Growth Status 08/24/17 03:00 Blood Blood Culture - Preliminary NO GROWTH AFTER 24 HOURS Resulted 08/24/17 02:45 Blood Blood Culture - Preliminary NO GROWTH AFTER 24 HOURS Resulted 08/24/17 03:30 Nasal Nares Influenza Types A,B Antigen (JUSTINE) - Final Complete 08/24/17 03:55 Urine,Clean Catch Urine Culture - Preliminary Mixed Urogenital Contaminants Resulted Laboratory Tests 08/24/17 10:00: Prothrombin Time 14.8H, Prothromb Time International Ratio 1.4H, Activated Partial Thromboplast Time 49H, Troponin I 0.460H 08/24/17 12:48: Arterial Blood pH 7.310L, Arterial Blood Partial Pressure CO2 38.9, Arterial Blood Partial Pressure O2 104.6H, Arterial Blood HCO3 19.5L, Arterial Blood Oxygen Saturation 95.3, Arterial Blood Base Excess -6.1, Aram Test Positive 08/24/17 19:00: Body Fluid Source Thoracentesis, Body Fluid Volume 24, Body Fluid Appearance Hazy, Body Fluid RBC 5320, Body Fluid Total Nucleated Cells 120, Body Fluid Polynuclear WBCs (%) 71, Body Fluid Mononuclear WBCs (%) 27, Body Fluid Mesothelial Cells (%) 2 08/24/17 20:30: Troponin I 0.797H, White Blood Count 23.0*H, Red Blood Count 3.27L, Hemoglobin 9.1L, Hematocrit 30.0L, Mean Corpuscular Volume 92, Mean Corpuscular Hemoglobin 27.8, Mean Corpuscular Hemoglobin Concent 30.3L, Red Cell Distribution Width 17.8H, Platelet Count 218, Mean Platelet Volume 9.9, Neutrophils (%) (Auto) , Lymphocytes (%) (Auto) , Monocytes (%) (Auto) , Eosinophils (%) (Auto) , Basophils (%) (Auto) , Differential Total Cells Counted 100, Neutrophils % ( Manual) 91H, Lymphocytes % (Manual) 5L, Monocytes % (Manual) 3, Eosinophils % ( Manual) 0, Basophils % (Manual) 0, Band Neutrophils 1, Platelet Estimate Adequate, Platelet Morphology Normal, Polychromasia 1+, Hypochromasia 1+, Anisocytosis 1+, Sodium Level 146H, Potassium Level 3.4L, Chloride Level 111H, Carbon Dioxide Level 22, Anion Gap 13, Blood Urea Nitrogen 36H, Creatinine 1.7H , Estimat Glomerular Filtration Rate , Glucose Level 172H, Calcium Level 6.5L, Total Bilirubin 0.3, Aspartate Amino Transf (AST/SGOT) 322H, Alanine Aminotransferase (ALT/SGPT) 180H, Alkaline Phosphatase 302H, Total Protein 4.0L , Albumin 0.8L, Globulin 3.2, Albumin/Globulin Ratio 0.2L 08/25/17 03:15: White Blood Count 21.5H, Red Blood Count 3.35L, Hemoglobin 9.4L, Hematocrit 30.7L, Mean Corpuscular Volume 92, Mean Corpuscular Hemoglobin 28.1, Mean Corpuscular Hemoglobin Concent 30.7L, Red Cell Distribution Width 17.7H, Platelet Count 204, Mean Platelet Volume 9.1, Neutrophils (%) (Auto) , Lymphocytes (%) (Auto) , Monocytes (%) (Auto) , Eosinophils (%) (Auto) , Basophils (%) (Auto) , Neutrophils % (Manual) [Pending], Lymphocytes % (Manual) [Pending], Platelet Estimate [Pending], Platelet Morphology [Pending], Sodium Level 143, Potassium Level 4.0, Chloride Level 111H, Carbon Dioxide Level 19L, Anion Gap 13, Blood Urea Nitrogen 37H, Creatinine 1.8H, Estimat Glomerular Filtration Rate , Glucose Level 192H, Calcium Level 6.4L, Total Bilirubin 0.3, Aspartate Amino Transf (AST/SGOT) 281H, Alanine Aminotransferase (ALT/SGPT) 202H , Alkaline Phosphatase 304H, Troponin I 1.613H, Total Protein 4.0L, Albumin 0.8L , Globulin 3.2, Albumin/Globulin Ratio 0.2L, Thyroid Stimulating Hormone (TSH) 1.262 Current Medications Medications (Trade) Dose Ordered Sig/Mati Route PRN Reason Start Time Stop Time Status Last Admin Dose Admin Albuterol/ Ipratropium (Albuterol/ Ipratropium) 3 ml Q4H PRN HHN Shortness of Breath 08/24/17 14:00 08/29/17 13:59 Amiodarone HCl (Cordarone) 200 mg DAILY ORAL 08/25/17 09:00 09/24/17 08:59 Aspirin (ASA) 81 mg DAILY ORAL 08/25/17 09:00 09/24/17 08:59 Atorvastatin Calcium (Lipitor) 80 mg QHS ORAL 08/24/17 21:00 09/23/17 20:59 Clopidogrel Bisulfate (Plavix) 75 mg DAILY ORAL 08/25/17 09:00 09/24/17 08:59 Dextrose (Dextrose 50%) STAT PRN IV Hypoglycemia 08/24/17 14:00 09/23/17 13:59 Dextrose/ Electrolytes 1,000 ml @ 100 mls/hr Q10H IV 08/24/17 14:00 09/23/17 13:59 08/25/17 00:01 Enoxaparin Sodium (Lovenox) 40 mg DAILY SUBQ 08/24/17 14:00 09/23/17 13:59 Lorazepam (Ativan 2mg/ml 1ml) 0.5 mg Q2H PRN IV For Anxiety 08/24/17 14:00 08/31/17 13:59 08/25/17 03:29 Metoprolol Succinate (Toprol XL) 25 mg DAILY ORAL 08/25/17 09:00 09/24/17 08:59 Norepinephrine Bitartrate 4 mg/ Dextrose 250 ml @ 0 mls/hr Q24H IV 08/24/17 13:45 09/23/17 13:44 08/24/17 17:05 Piperacillin Sod/ Tazobactam Sod 3.375 gm/Sodium Chloride 110 ml @ 27.5 mls/hr Q12HR@0400,1600 IVPB 08/24/17 16:00 08/31/17 15:59 08/25/17 03:28 Vancomycin HCl (Vanco rx to dose) 1 ea DAILY PRN MISC Per rx protocol 08/25/17 09:00 09/23/17 09:14 Vancomycin HCl 500 mg/Sodium Chloride 110 ml @ 110 mls/hr Q48H IVPB 08/26/17 02:00 08/31/17 01:59 DAE BARAKAT Aug 25, 2017 08:48
--- NOTE | 2017-08-25 08:59 | Diagnostic Imaging Report ---
Indication: Post chest tube insertion for pneumothorax Technique: One view of the chest Comparison: 2 1/2 hours earlier Findings: Interim placement of a large-bore right chest tube. Previously demonstrated large right pneumothorax has largely resolved, with only a sliver of pneumothorax seen at the lung apex. There is subcutaneous emphysema which appears similar in amount to as seen on the previous study. Previously demonstrated small bore chest vent catheter has been removed. Bilateral interstitial and alveolar parenchymal disease, left-sided pleural effusion persists, unchanged. Stable satisfactory positions of endotracheal tube and left arm port catheter. Surgical clips are seen in the upper abdomen Impression: Interim large bore right chest tube placement. Nearly resolved right pneumothorax as a result. Largely stable subcutaneous emphysema Other stable findings as described, over 2 1/2 hours
[2017-08-25] MEDS ORDERED: Amiodarone 200mg tab ORAL SCH ×2 (09:00)
[2017-08-25] MEDS ORDERED: Metoprolol Succinate XL 25mg tab ORAL SCH ×2 (09:00)
[2017-08-25] MEDS: Enoxaparin 40mg Inj SUBQ SCH (09:00)
[2017-08-25] MEDS ORDERED: Aspirin Baby 81mg ORAL SCH ×2 (09:00)
--- NOTE | 2017-08-25 09:27 | Diagnostic Imaging Report ---
Indication: Status post nasogastric tube placement Technique: Supine view of the upper abdomen Comparison: 08/24/2017 Findings: Interim placement of a nasogastric tube, tip which projects at the level of the gastric body, proximal port at or just beyond the level of gastroesophageal junction. Right chest tube again demonstrated. There is a small apical pneumothorax which is equivocally slightly larger than on the prior study. There is decreased subcutaneous emphysema. Right upper quadrant surgical clips and an inferior vena cava filter noted. Bilateral diffuse interstitial and airspace parenchymal disease, moderate to large left-sided pleural effusion again demonstrated. Visualized bowel gas is unremarkable. Stable satisfactory positions of endotracheal tube, left arm port catheter Impression: Satisfactory nasogastric tube placement Slightly increased but still minimal tiny apical pneumothorax. Chest tube in place Decreased subcutaneous emphysema Other stable findings as described This agrees with the preliminary interpretation provided overnight by [facility] teleradiology service.
[2017-08-25] MEDS ORDERED: Sodium Chloride 500ML 500 ML IV ONE (10:30)
--- NOTE | 2017-08-25 11:55 | Wound Care Consultation ---
Wound Assessment Wound Assessment : Wound Number: 1 Wound Present on Admission: Yes New Wound: No Status Change of Wound: No Wound Location Body Site: sacral Wound Type: pressure ulcer [place] Test: Does not [place] Pressure Ulcer Stage: Unstageable Wound Thickness: Full Thickness Wound Length: 3.0 Wound Width: 3.0 Wound Depth: utd Percent of Wound Bed Yellow/Wh: 50 Percent of Wound Purple/Maroon: 50 - at risk for furhter skin breakdown. Other Colors Identified: sacroccygeal extending to left side buttocks deep tissue injury 5.0cmx5.0cm Wound Drainage Description: Serosanguineous Wound Drainage Amount: Moderate Wound Drainage Odor: None/Absent Tissue Surrounding Wound: Macerated Wound General Appearance: Reddened - maroon, Draining, Necrotic Wound Comment #1 sacral unstageable pressure ulcer with sacrococcygeal extending to left buttocks/sacral deep tissue injury- at risk for further skin breakdown. #2 Right and left 1st and 5th plantar thick yellow callus -intact. #3 right achilles tendon area dry flaky skin, noted small scab intact brown in color 0.5cmx0.5cm Recommendation. -Local wound care as ordered. -Keep lower extremities moisturized including scab to right achilles tendon area. -Keep clean and dry. -Offload affected areas. -Optimize nutrition. -Avoid shear or friction. -Apply heel protectors. -Assess and notify MD for any further change of condition to skin. -Apply low air loss mattress for wound and skin management. [id number] SABINO CNATU Aug 25, 2017 11:55
--- NOTE | 2017-08-25 14:26 | General Progress Note ---
Progress Note Progress Note Surgery: doing okay. more alert today. eyes open spontaneously. taking some spontaneous breaths but still requires vent. chest tube in place and CXR post procedure improved. still with air leak as noted in chamber today. chest tube output high. -continue with current care and management -chest tube to suction -wean vent as tolerated -CXR tomorrow -possible left sided thoracentesis. -family discussing goals of care. will follow with recs. Brad Berkowitz Aug 25, 2017 14:26
[2017-08-25] MEDS ORDERED: Morphine Sulfate 10mg/ml Inj ONE (15:16)
[2017-08-25] MEDS ORDERED: Morphine Sulfate 2mg/ml Inj IVP ONE (15:20)
[2017-08-25] MEDS ORDERED: LORazepam Inj 2mg/ml 1ml IV ONE (15:20)
--- NOTE | 2017-08-25 15:28 | Pulmonology Progress Note ---
Assessment/Plan Assessment/Plan 1. Sepsis with shock. 2. Respiratory failure, hypoxic type, intubated 08/24/17 3. Pneumonia and pleural effusions, tapped 08/24 4. Metastatic pancreatic cancer. 5. Severe protein-calorie malnutrition. 6. R pneumothorax 315 PM I met with the son, 2 dtrs and sister of patient at bedside I advised that she has GN septic shock and multiorgan failure including CV collapse, resp and anuric renal failure I recommended comfort care I called her oncologist and he spoke with the family and they agreed I ordered sedation and extubation dc pressors dc vent expected 330 PM extubated BP 49/s comfortable family at bedside Subjective ROS Limited/Unobtainable: Yes Allergies: Coded Allergies: No Known Allergies (Unverified , 08/24/17) Objective Last 24 Hour Vital Signs Date Time Temp Pulse Resp B/P (MAP) Pulse Ox O2 Delivery O2 Flow Rate FiO2 08/25/17 14:35 92/63 08/25/17 14:30 103 30 100 08/25/17 14:00 103 29 100/77 Mechanical Ventilator 100 08/25/17 13:30 106 29 100 08/25/17 13:00 105 30 100/78 Mechanical Ventilator 100 08/25/17 13:00 94/55 08/25/17 12:00 108/83 08/25/17 12:00 100 08/25/17 12:00 106 30 108/83 Mechanical Ventilator 100 08/25/17 12:00 105 08/25/17 11:30 104 30 93/66 Mechanical Ventilator 100 90 08/25/17 11:00 104 26 105/63 Mechanical Ventilator 100 92 08/25/17 11:00 93/66 08/25/17 10:30 107 30 100 08/25/17 10:00 104/69 08/25/17 10:00 108 30 100/47 Mechanical Ventilator 100 92 08/25/17 09:30 108 30 96/70 Mechanical Ventilator 100 92 08/25/17 09:13 99/67 08/25/17 09:00 108 30 70/52 Mechanical Ventilator 100 08/25/17 09:00 100/68 08/25/17 08:58 109 31 100 08/25/17 08:30 110 30 97/66 Mechanical Ventilator 100 94 08/25/17 08:15 110 30 105/73 Mechanical Ventilator 100 94 08/25/17 08:00 97.6 108 30 97/49 Mechanical Ventilator 100 94 08/25/17 08:00 97/49 08/25/17 08:00 100 08/25/17 08:00 110 08/25/17 07:45 111 31 108/57 Mechanical Ventilator 100 94 08/25/17 07:30 108/57 08/25/17 07:30 110 29 111/87 Mechanical Ventilator 100 94 08/25/17 07:00 111/69 08/25/17 07:00 112 32 111/69 Mechanical Ventilator 100 94 08/25/17 06:59 111 31 100 08/25/17 05:45 111 24 94/72 Mechanical Ventilator 100 94 08/25/17 05:30 110 24 115/85 Mechanical Ventilator 100 94 08/25/17 05:18 110 27 100 08/25/17 05:15 110 24 102/68 Mechanical Ventilator 100 94 08/25/17 05:00 110 24 113/70 Mechanical Ventilator 100 94 08/25/17 04:15 106 24 110/61 Mechanical Ventilator 100 94 08/25/17 04:00 100 08/25/17 04:00 103 24 92/63 Mechanical Ventilator 100 94 08/25/17 04:00 106 08/25/17 03:30 113 24 91/59 Mechanical Ventilator 100 94 08/25/17 03:29 95 27 100 08/25/17 03:15 113 24 84/66 Mechanical Ventilator 100 94 08/25/17 03:00 109 24 120/74 Mechanical Ventilator 100 94 08/25/17 02:45 107 24 129/92 Mechanical Ventilator 100 94 08/25/17 02:30 105 24 117/79 Mechanical Ventilator 100 94 08/25/17 02:15 103 24 103/77 Mechanical Ventilator 100 94 08/25/17 02:00 102 24 118/72 Mechanical Ventilator 100 94 18 01:24 97 26 100 08/25/17 01:00 107/40 08/25/17 01:00 100 24 107/40 Mechanical Ventilator 100 94 08/25/17 00:45 101 24 111/84 Mechanical Ventilator 100 94 08/25/17 00:15 101 24 107/70 Mechanical Ventilator 100 94 08/25/17 00:00 101 24 114/57 Mechanical Ventilator 100 94 08/24/17 23:45 100 24 110/69 Mechanical Ventilator 100 94 08/24/17 23:30 100 24 111/77 Mechanical Ventilator 100 94 08/24/17 23:29 99 27 100 08/24/17 23:15 100 24 132/45 Mechanical Ventilator 100 94 08/24/17 23:00 98 24 103/66 Mechanical Ventilator 100 94 08/24/17 22:45 98 24 112/69 Mechanical Ventilator 100 94 08/24/17 22:15 98 24 106/48 Mechanical Ventilator 100 94 08/24/17 22:00 97 24 103/62 Mechanical Ventilator 100 94 08/24/17 21:29 95 25 100 08/24/17 21:00 96 24 97/66 Mechanical Ventilator 100 94 08/24/17 20:45 94 25 98/52 Mechanical Ventilator 100 94 08/24/17 20:30 94 24 98/59 Mechanical Ventilator 100 94 08/24/17 20:15 96 24 92/64 Mechanical Ventilator 100 94 08/24/17 20:00 93 08/24/17 20:00 96 24 89/62 Mechanical Ventilator 100 94 08/24/17 20:00 100 08/24/17 19:11 93 26 100 08/24/17 19:00 94 29 97/65 Mechanical Ventilator 100 94 08/24/17 18:30 89 23 105/65 Mechanical Ventilator 100 100 08/24/17 18:15 89 23 133/76 Mechanical Ventilator 100 100 08/24/17 18:00 89 23 99/59 Mechanical Ventilator 100 100 08/24/17 17:45 90 23 93/61 Mechanical Ventilator 100 100 08/24/17 17:30 91 23 95/60 Mechanical Ventilator 100 99 08/24/17 17:15 92 23 98/61 Mechanical Ventilator 100 99 08/24/17 17:05 55/35 08/24/17 17:00 93 25 91/62 Mechanical Ventilator 100 98 08/24/17 16:45 95 25 56/32 Mechanical Ventilator 100 98 08/24/17 16:45 90 26 100 08/24/17 16:30 97 24 78/51 Mechanical Ventilator 100 97 08/24/17 16:00 100 08/24/17 16:00 97.1 97 31 105/67 Mechanical Ventilator 100 97 08/24/17 16:00 98 08/24/17 15:30 97 31 129/71 Mechanical Ventilator 100 97 Intake and Output 08/24/17 08/25/17 19:00 07:00 Intake Total 350 ml 952.5 ml Output Total 0 ml 620 ml Balance 350 ml 332.5 ml Intake IV Total 350 ml 952.5 ml Output Urine Total 0 ml 0 ml Chest Tube Drainage Total 620 ml Objective R anterior chest tube to suction Microbiology Date/Time Source Procedure Growth Status 08/24/17 03:00 Blood Blood Culture - Preliminary NO GROWTH AFTER 24 HOURS Resulted 08/24/17 02:45 Blood Blood Culture - Preliminary Resulted 08/24/17 03:30 Nasal Nares Influenza Types A,B Antigen (JUSTINE) - Final Complete 08/24/17 03:55 Urine,Clean Catch Urine Culture - Preliminary Mixed Urogenital Contaminants Resulted Laboratory Tests 08/24/17 19:00: Body Fluid Source Thoracentesis, Body Fluid Volume 24, Body Fluid Appearance Hazy, Body Fluid RBC 5320, Body Fluid Total Nucleated Cells 120, Body Fluid Polynuclear WBCs (%) 71, Body Fluid Mononuclear WBCs (%) 27, Body Fluid Mesothelial Cells (%) 2 08/24/17 20:30: White Blood Count 23.0*H, Red Blood Count 3.27L, Hemoglobin 9.1L, Hematocrit 30.0L, Mean Corpuscular Volume 92, Mean Corpuscular Hemoglobin 27.8, Mean Corpuscular Hemoglobin Concent 30.3L, Red Cell Distribution Width 17.8H, Platelet Count 218, Mean Platelet Volume 9.9, Neutrophils (%) (Auto) , Lymphocytes (%) (Auto) , Monocytes (%) (Auto) , Eosinophils (%) (Auto) , Basophils (%) (Auto) , Differential Total Cells Counted 100, Neutrophils % ( Manual) 91H, Lymphocytes % (Manual) 5L, Monocytes % (Manual) 3, Eosinophils % ( Manual) 0, Basophils % (Manual) 0, Band Neutrophils 1, Platelet Estimate Adequate, Platelet Morphology Normal, Polychromasia 1+, Hypochromasia 1+, Anisocytosis 1+, Sodium Level 146H, Potassium Level 3.4L, Chloride Level 111H, Carbon Dioxide Level 22, Anion Gap 13, Blood Urea Nitrogen 36H, Creatinine 1.7H , Estimat Glomerular Filtration Rate , Glucose Level 172H, Calcium Level 6.5L, Total Bilirubin 0.3, Aspartate Amino Transf (AST/SGOT) 322H, Alanine Aminotransferase (ALT/SGPT) 180H, Alkaline Phosphatase 302H, Troponin I 0.797H, Total Protein 4.0L, Albumin 0.8L, Globulin 3.2, Albumin/Globulin Ratio 0.2L 08/25/17 03:15: White Blood Count 21.5H, Red Blood Count 3.35L, Hemoglobin 9.4L, Hematocrit 30.7L, Mean Corpuscular Volume 92, Mean Corpuscular Hemoglobin 28.1, Mean Corpuscular Hemoglobin Concent 30.7L, Red Cell Distribution Width 17.7H, Platelet Count 204, Mean Platelet Volume 9.1, Neutrophils (%) (Auto) , Lymphocytes (%) (Auto) , Monocytes (%) (Auto) , Eosinophils (%) (Auto) , Basophils (%) (Auto) , Differential Total Cells Counted 100, Neutrophils % ( Manual) 92H, Lymphocytes % (Manual) 3L, Monocytes % (Manual) 3, Eosinophils % ( Manual) 0, Basophils % (Manual) 0, Band Neutrophils 2, Platelet Estimate Adequate, Platelet Morphology Normal, Hypochromasia 1+, Anisocytosis 1+, Sodium Level 143, Potassium Level 4.0, Chloride Level 111H, Carbon Dioxide Level 19L, Anion Gap 13, Blood Urea Nitrogen 37H, Creatinine 1.8H, Estimat Glomerular Filtration Rate , Glucose Level 192H, Calcium Level 6.4L, Total Bilirubin 0.3, Aspartate Amino Transf (AST/SGOT) 281H, Alanine Aminotransferase (ALT/SGPT) 202H , Alkaline Phosphatase 304H, Troponin I 1.613H, Total Protein 4.0L, Albumin 0.8L , Globulin 3.2, Albumin/Globulin Ratio 0.2L, Evelyn Cells Occasional, Thyroid Stimulating Hormone (TSH) 1.262 Current Medications Medications (Trade) Dose Ordered Sig/Mati Route PRN Reason Start Time Stop Time Status Last Admin Dose Admin Albuterol/ Ipratropium (Albuterol/ Ipratropium) 3 ml Q4H PRN HHN Shortness of Breath 08/24/17 14:00 08/29/17 13:59 Amiodarone HCl (Cordarone) 200 mg DAILY ORAL 08/25/17 09:00 09/24/17 08:59 08/25/17 09:40 Aspirin (ASA) 81 mg DAILY ORAL 08/25/17 09:00 09/24/17 08:59 Atorvastatin Calcium (Lipitor) 80 mg QHS ORAL 08/24/17 21:00 09/23/17 20:59 Clopidogrel Bisulfate (Plavix) 75 mg DAILY ORAL 08/25/17 09:00 09/24/17 08:59 Dextrose (Dextrose 50%) STAT PRN IV Hypoglycemia 08/24/17 14:00 09/23/17 13:59 Dextrose/ Electrolytes 1,000 ml @ 100 mls/hr Q10H IV 08/24/17 14:00 09/23/17 13:59 08/25/17 10:00 Enoxaparin Sodium (Lovenox) 40 mg DAILY SUBQ 08/24/17 14:00 09/23/17 13:59 Lorazepam (Ativan 2mg/ml 1ml) 0.5 mg Q2H PRN IV For Anxiety 08/24/17 14:00 08/31/17 13:59 08/25/17 03:29 Lorazepam (Ativan 2mg/ml 1ml) 2 mg ONCE ONCE IV 08/25/17 15:20 08/25/17 15:21 Morphine Sulfate (Morphine Sulfate) 8 mg ONCE ONCE IVP 08/25/17 15:20 08/25/17 15:21 Norepinephrine Bitartrate 4 mg/ Dextrose 250 ml @ 0 mls/hr Q24H IV 08/24/17 13:45 09/23/17 13:44 08/25/17 14:35 Piperacillin Sod/ Tazobactam Sod 3.375 gm/Sodium Chloride 110 ml @ 27.5 mls/hr Q12HR@0400,1600 IVPB 08/24/17 16:00 08/31/17 15:59 08/25/17 03:28 Vancomycin HCl (Vanco rx to dose) 1 ea DAILY PRN MISC Per rx protocol 08/25/17 09:00 09/23/17 09:14 Vancomycin HCl 500 mg/Sodium Chloride 110 ml @ 110 mls/hr Q48H IVPB 08/26/17 02:00 08/31/17 01:59 DAE BARAKAT Aug 25, 2017 15:28
[2017-08-25] MEDS ORDERED: Morphine Sulfate 10mg/ml Inj IVP PRN (15:30)
[2017-08-25] MEDS ORDERED: LORazepam Inj 2mg/ml 1ml IV PRN (15:30)
[2017-08-25] MEDS ORDERED: Morphine Sulfate 10mg/ml Inj IVP ONE (15:30)
[2017-08-25] MEDS ORDERED: NS 500ML ONE (15:49)
[2017-08-25] MEDS ORDERED: Tubing IV Secondary IV ONE (15:49)
--- NOTE | 2017-08-25 17:58 | Cardiology Report ---
APPROVED REPORT EXAM: Two-dimensional and M-mode echocardiogram with Doppler and color Doppler. INDICATION Pericardial effusion M-Mode DIMENSIONS IVSd1.2 (0.7-1.1cm)Left Atrium (MM)2.0 (1.6-4.0cm) LVDd3.3 (3.5-5.6cm)Aortic Root3.3 (2.0-3.7cm) PWd1.3 (0.7-1.1cm)Aortic Cusp Exc.1.6 (1.5-2.0cm) LVDs1.9 (2.5-4.0cm) PWs1.6 cm Technically difficult study due to poor acoustical windows and pts position. All views are mostly subcostal views. Normal left ventricular chamber size. Rv dilation and hypkinesis Left ventricular ejection fraction estimated to be 60 -70%. Study quality precludes accurate assessment of regional wall motion. Mild left ventricular hypertrophy. NO EVIDENCE OF PERICARDIAL EFFUSION. RA dilation Focal aortic valve sclerosis with adequate cusp excursion. Thickened mitral valve leaflets with normal excursion. Mitral annulus and aortic root calcification. Pulmonic valve not well visualized. Normal tricuspid valve structure. IVC at normal size with physiologic collapse. A color flow and spectral Doppler study was performed and revealed: Trace mitral regurgitation. Mitral diastolic velocities suggest reduced left ventricular relaxation c/w mild LV diastolic dysfunction (Grade I ). Moderate tricuspid regurgitation. Tricuspid systolic velocities suggests peak right ventricular systolic pressure of 86 mmHg, consistent with severe pulmonary hypertension. Pulmonic regurgitation present.
[2017-08-26] MEDS ORDERED: Vancomycin 500 MG in NS 110 ML IVPB SCH ×4 (02:00)
--- NOTE | 2017-08-27 04:30 | Consultation ---
DATE OF CONSULTATION: 08/24/2017 CARDIOLOGY CONSULTATION CONSULTING PHYSICIAN: Frederic Kinsey M.D. REQUESTING PHYSICIAN: Stephen Lofton M.D. REASON FOR CONSULTATION: Shock. HISTORY OF PRESENT ILLNESS: This is an elderly female with metastatic pancreatic cancer, who has had chemotherapy. She was transferred to the emergency room from a [place] [facility] facility because of hypoxia. She was evaluated and felt to have pneumonia. She subsequently developed a full arrest requiring intubation and mechanical ventilation. She is on pressor support. PAST MEDICAL HISTORY: History of DVT and pulmonary embolism, COPD, pancreatic cancer, coronary artery disease, paroxysmal atrial fibrillation, history of myocardial infarction, and hyperlipidemia. MEDICATIONS: Prior to admission, reviewed and reconciled. ALLERGIES: None known. SOCIAL HISTORY: Apparent prior history of smoking. No alcohol or substance abuse. REVIEW OF SYSTEMS: Otherwise not obtainable. PHYSICAL EXAMINATION: VITAL SIGNS: She is afebrile, blood pressure 70/50, heart rate 120, respiratory rate 36, T max 99.8. HEENT: Orally intubated. LUNGS: Bilateral breath sounds with rhonchi. HEART: Regular rhythm. Rapid rate. Normal S1 and S2. Frequent ectopic beats. ABDOMEN: Soft. EXTREMITIES: No edema. Poor capillary refill and cool to touch distally. LABORATORY AND DIAGNOSTIC DATA: Lactic acid is elevated. Troponin mildly elevated. Laboratories are all reviewed. Chest x-ray reveals diffuse air interstitial disease with bilateral pleural effusions. There is a Port-A-Cath in the left upper extremity. IMPRESSION: 1. Sepsis with shock. 2. Respiratory failure. 3. Pneumonia with pleural effusions. 4. Metastatic pancreatic cancer. 5. Ischemic cardiomyopathy. 6. History of deep venous thrombosis and pulmonary emboli. 7. Severe protein-calorie malnutrition. 8. Condition is critical and prognosis is grave. PLAN: 1. Family members discussing advance directives at this time. 2. Interim therapy should include full ventilator support, broad-spectrum antibiotics, pressors with taper as able, and volume resuscitation. 3. Continued anticoagulation. 4. Antiarrhythmic therapy with amiodarone to be continued at maintenance dosing. Frederic Kinsey M.D. DR: Jessi JOB#: [id number] CC:
--- NOTE | 2017-08-27 04:45 | Progress Note ---
DATE: 08/25/2017 SUBJECTIVE: The patient was seen and evaluated. Case was discussed with the nurse. The patient remains hypotensive, now requiring high doses of pressor support. Monitor, sinus tachycardia with frequent atrial ectopics. OBJECTIVE: VITAL SIGNS: Blood pressure 95/60, heart rate 112, respiratory rate 30, temperature 98.6 degrees. GENERAL: Orally intubated. Poorly responsive. HEENT: Temporal wasting. LUNGS: Coarse breath sounds. Scattered rhonchi. HEART: Irregularly irregular rhythm. Rapid rate. Normal S1, S2. ABDOMEN: Soft. EXTREMITIES: Distal pulses are diminished. Poor capillary refill. No edema. LABORATORY DATA: White count 21.5, hemoglobin 9.4. BUN 37, creatinine 1.8. Albumin 0.8. TSH 1.2. IMPRESSION: 1. Respiratory failure. 2. Aspiration pneumonia. 3. Pleural effusion, status post thoracentesis. 4. Secondary sinus tachycardia. 5. Paroxysmal atrial ectopy. 6. Multiorgan system failure. 7. Sepsis with shock. 8. Severe protein-calorie malnutrition. 9. Right pneumothorax. PLAN: Continue amiodarone. Discontinue beta-mae. Continue pressors with taper. Ventilator support. Antimicrobials. Family members contemplating terminal extubation in view of grave prognosis and advanced systemic disease with metastatic carcinoma. Frederic Kinsey M.D. DR: Jessi JOB#: [id number] CC:
--- NOTE | 2017-08-28 12:56 | Discharge Summary 2 SIG ---
DATE OF ADMISSION: 08/24/2017 DATE OF DISCHARGE: 08/25/2017 BRIEF SUMMARY: The patient is an elderly 72-year-old female, who [facility] because of shortness of breath. She is known to have CA of the pancreas and has had chemotherapy. She was evaluated at ED and was noted to be hypoxic. Sepsis was considered likely due to pneumonia in view of the chest x-ray findings and symptoms. She has history of chronic obstructive pulmonary disease, PE, DVT, pancreatic CA, history of myocardial infarction, arrhythmia, and hyperlipidemia. On evaluation at ED, WBC was elevated to 27, and chest x-ray showed bilateral pulmonary congestion with possible bilateral pneumonia. O2 saturations were normal. The patient was tachycardic at rate of 110s. She was given breathing treatments and was started empirically on IV antibiotics. Urine with findings of urinary tract infection. Lactic acid was elevated to 6.7. She was admitted for sepsis with pneumonia and urine infection. The patient had poor prognosis. The patient coded and was orally intubated. She was given pressors. She came in with a PICC line and was used for IV pressors. She underwent a right chest thoracentesis yielding 1200 mL of fluid. Post procedure, pneumothorax was seen. Right chest vent catheter was then inserted for evacuation of pneumothorax. Unfortunately, there was persistence of pneumothorax. Dr. Berkowitz was then called in for chest tube placement. Following day, discussion was made with he patient's family. The patient has Gram-negative septic shock and multiorgan failure including cardiovascular collapse, respiratory and anuric renal failure. Per family wishes, the patient was placed on comfort care. She was terminally extubated and eventually . FINAL DIAGNOSES: 1. Sepsis with shock. 2. Acute respiratory failure, hypoxic type, intubated on 08/24/2017. 3. Pneumonia with pleural effusion. 4. Metastatic pancreatic cancer. 5. Severe protein-calorie malnutrition. 6. Right-sided pneumothorax. 7. Multiorgan system failure. 8. Unstageable sacral pressure ulcer, present on admission. Stephen Lofton M.D. I have been assigned to dictate discharge summary on this account and I was not involved in the patient's management. Araceli Hernandez N.P. DR: SMITH JOB#: [id number] CC: MAMTA
--- NOTE | 2017-08-31 14:01 | Cardiology Report ---
APPROVED REPORT EKG Measurement Heart [id number] Sinus tachycardia Abnormal ECG
== END 2017-08-25 15:50 | disposition expired | DRG 871 ==
LOC: EDBD 02:32 → EDBEDREQSVC 03:06 → EMR 03:27 → 2E 03:36 → EDBEDREQ 05:45 → ICU 10:53
PROC: 5A1945Z Respiratory Ventilation, 24-96 Consecutive Hours (ICD-10-PCS; principal; 2017-08-24)
PROC: 0BH17EZ Insertion of Endotracheal Airway into Trachea, Via Natural or Artificial Opening (ICD-10-PCS; principal; 2017-08-24)
PROC: 0W9900Z Drainage of Right Pleural Cavity with Drainage Device, Open Approach (ICD-10-PCS; 2017-08-24)
PROC: 0W9930Z Drainage of Right Pleural Cavity with Drainage Device, Percutaneous Approach (ICD-10-PCS; 2017-08-24)
PROC: 0W993ZZ Drainage of Right Pleural Cavity, Percutaneous Approach (ICD-10-PCS; 2017-08-24)
DX: A41.50 Gram-negative sepsis, unspecified (principal); J18.9 Pneumonia, unspecified organism; J96.01 Acute respiratory failure with hypoxia; E43 Unspecified severe protein-calorie malnutrition; R65.21 Severe sepsis with septic shock; L89.150 Pressure ulcer of sacral region, unstageable; J90 Pleural effusion, not elsewhere classified; C25.9 Malignant neoplasm of pancreas, unspecified; J95.811 Postprocedural pneumothorax; Z68.1 Body mass index [BMI] 19.9 or less, adult; C78.00 Secondary malignant neoplasm of unspecified lung; N39.0 Urinary tract infection, site not specified; Z51.5 Encounter for palliative care; R09.02 Hypoxemia; Z66 Do not resuscitate; Z86.718 Personal history of other venous thrombosis and embolism; Z86.711 Personal history of pulmonary embolism; I25.10 Atherosclerotic heart disease of native coronary artery without angina pectoris; E78.5 Hyperlipidemia, unspecified; I48.0 Paroxysmal atrial fibrillation; I25.5 Ischemic cardiomyopathy; J44.9 Chronic obstructive pulmonary disease, unspecified; Z79.02 Long term (current) use of antithrombotics/antiplatelets
CPT/HCPCS: 31500; 36415; 36600; 71045; 74018; 76942; 77002; 80053; 81003; 82550; 82553; 82803; 82962; 83605; 83880; 84443; 84484; 85007; 85025; 85610; 85730; 86710; 87040; 87070; 87081; 87086; 87181; 87205; 88104; 89051; 93005; 93306; 94002; 94003